=== PATIENT | female | born 1975 | race Caucasian/White ===

== ENCOUNTER → 2022-05-04 17:02 | Outpatient (BNVA) | payer BC, MEDICAID, SELFPAY | PROVIDERS: PCP Nurse Practitioner Family; Visit Provider Nurse Practitioner Family | DX: M25.551 Pain in right hip (principal); M54.50 Low back pain, unspecified; G89.29 Other chronic pain; Z12.39 Encounter for other screening for malignant neoplasm of breast; E03.9 Hypothyroidism, unspecified; M79.7 Fibromyalgia; F31.9 Bipolar disorder, unspecified; J45.20 Mild intermittent asthma, uncomplicated; E55.9 Vitamin D deficiency, unspecified; Z12.11 Encounter for screening for malignant neoplasm of colon; Z87.42 Personal history of other diseases of the female genital tract; Z98.84 Bariatric surgery status | CPT/HCPCS: 80053; 82306; 82607; 82746; 83036; 84439; 84443; 85025 ==

== ENCOUNTER 2022-06-10 15:16 | Outpatient (CLI) | payer BC, MEDICAID, SELFPAY ==
--- NOTE | 2022-06-10 15:24 | MM_ITS ---
WS: [id number] BILATERAL 3D TOMOSYNTHESIS DIGITAL SCREENING MAMMOGRAPHY WITH CAD CLINICAL INFORMATION: SCREEN HISTORY: Screening mammogram. No current complaints. COMPARISON: None. TECHNIQUE: Bilateral CC and MLO views. FINDINGS: Scattered fibroglandular densities bilaterally. No suspicious focal mass, asymmetry, calcifications, or architectural distortion. No evidence of malignancy. MM/[place] [id number] IMPRESSION: BI-RADS: 1-Negative FOLLOW UP: 1 Year Follow-up Recommend return to annual screening mammography.
== END 2022-06-10 15:17 | disposition home or self-care (01) ==
LOC: RAD 15:20
PROVIDERS: PCP Nurse Practitioner Family; Visit Provider Nurse Practitioner Family
DX: Z12.31 Encounter for screening mammogram for malignant neoplasm of breast (principal)
CPT/HCPCS: 77063; 77067

== ENCOUNTER 2022-06-14 06:00 | Outpatient (RCR) | payer BC, SELFPAY | END 2022-06-17 23:59 | disposition home or self-care (01) | LOC: TPT 06:00 | PROVIDERS: PCP Nurse Practitioner Family; Visit Provider Nurse Practitioner Family | DX: M25.551 Pain in right hip (principal); M54.50 Low back pain, unspecified; G89.29 Other chronic pain | CPT/HCPCS: 97161 ==

== ENCOUNTER 2022-06-18 06:00 | Outpatient (RCR) | payer BC, SELFPAY | END 2022-07-17 23:59 | disposition home or self-care (01) | LOC: TPT 06:00 | PROVIDERS: PCP Nurse Practitioner Family; Visit Provider Nurse Practitioner Family | DX: G89.29 Other chronic pain (principal); M54.50 Low back pain, unspecified; M25.551 Pain in right hip | CPT/HCPCS: 97110 ==

== ENCOUNTER → 2022-06-21 15:20 | Outpatient (BNVA) | payer BC, SELFPAY | PROVIDERS: PCP Nurse Practitioner Family; Visit Provider Physician Assistant | DX: Z98.1 Arthrodesis status (principal) | CPT/HCPCS: 72100 ==

== ENCOUNTER → 2022-06-23 17:00 | Outpatient (BNVA) | payer BC, MEDICAID, SELFPAY | PROVIDERS: PCP Nurse Practitioner Family; Visit Provider Nurse Practitioner Family | DX: J32.9 Chronic sinusitis, unspecified (principal) | CPT/HCPCS: 80053; 85025; 86003; 86008; 86618; 86666; 86757 ==

== ENCOUNTER → 2022-08-10 17:16 | Outpatient (BNVA) | payer BC, SELFPAY | PROVIDERS: PCP Nurse Practitioner Family; Visit Provider Nurse Practitioner Family | DX: E03.9 Hypothyroidism, unspecified (principal); R74.8 Abnormal levels of other serum enzymes | CPT/HCPCS: 80076; 82306; 84443 ==

== ENCOUNTER 2022-10-31 08:38 | Outpatient (CLI) | payer BC, SELFPAY ==
--- NOTE | 2022-10-31 08:30 | US_ITS ---
WS: [id number] Complete ABDOMINAL ULTRASOUND HISTORY: R74.8 - Abnormal levels of other serum enzymes COMPARISON: None available. Liver: 16.3 cm in length. Normal size liver and echogenicity. No bile duct dilatation or mass. Portal Vein: Normal hepatopetal flow with monophasic waveform. Gallbladder: Numerous gallstones within the gallbladder. No pericholecystic fluid or gallbladder wall thickening. Common bile duct is top normal size at 6 mm. CBD: 0.6 cm, top normal size. Pancreas: No pancreatic duct dilatation. Normal pancreas. Right kidney: 11.8 cm x 5.0 x 4.1 cm. Cortex: 1.2 cm. Normal size and echogenicity. No hydronephrosis or mass. Left kidney: 12.8 cm x 5.5 cm x 5.6 cm. Cortex: 1.2 cm. Lower pole left renal cyst measures 4.8 x 4.2 x 4.6 cm. No solid mass. Spleen: Normal. 12.8 cm in length. Aorta and IVC: Unremarkable abdominal aorta and IVC. Impression: 1. Cholelithiasis. No evidence for acute cholecystitis. 2. No common bile duct dilatation. 3. Simple left renal cyst maximum diameter 4.8 cm.
== END 2022-10-31 08:39 | disposition home or self-care (01) ==
LOC: RAD 08:46
PROVIDERS: PCP Nurse Practitioner Family; Visit Provider Nurse Practitioner Family
DX: R74.8 Abnormal levels of other serum enzymes (principal); Z90.49 Acquired absence of other specified parts of digestive tract; N28.1 Cyst of kidney, acquired
CPT/HCPCS: 76700; 80053; 80061; 82306; 84439; 84443; 85025

== ENCOUNTER 2022-12-29 18:30 | Emergency (ER) | payer BC, SELFPAY ==
[2022-12-29 18:35] VITALS: BP 161/94; PULSE 95; RESP 16; TEMP 36.6; O2SAT 94; BMI 37.1
--- NOTE | 2022-12-29 18:38 | ECG_ITS ---
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 Measurements Intervals [place] Rate: 87 P: 36 CT: 153 QRS: -23 QRSD: 104 T: 8 QT: 378 QTc: 456 Interpretive Statements SINUS RHYTHM POSSIBLE LEFT ATRIAL ENLARGEMENT [-0.1mV P-WAVE IN V1/V2] INCOMPLETE RIGHT BUNDLE BRANCH BLOCK [90+ ms QRS DURATION, TERMINAL R IN V1/V2, 40+ ms S IN I/aVL/V4/V5/V6] SEPTAL MYOCARDIAL INFARCTION , OF INDETERMINATE AGE [40+ ms Q WAVE IN V1/V2] No previous ECG available for comparison Electronically Signed On 12-29-2022 21:35:04 CDT by Elana Lopez M.D. [id number]
[2022-12-29 20:03] LABS: Basophils # 0.1 10^3/uL (0.0-0.1); Basophils % 0.5 %; Eosinophils # 0.3 10^3/uL (0.0-0.8); Eosinophils % 2.9 %; Hematocrit 46.9 % (36-47); Lymphocytes # 2.6 10^3/uL (0.8-4.8); Lymphocytes % 25.1 %; Mean Corpuscular HGB Conc 33.7 g/dL (30-55); Mean Corpuscular Hemoglobin 30.6 pg (27-33); Mean Corpuscular Volume 90.9 fl (85-98); Mean Platelet Volume 10.4 fL (7.4-10.4); Monocytes # 0.8 10^3/uL (0.2-0.9); Monocytes % 7.8 %; Neutrophils # 6.64 10^3/uL (1.8-7.7); Neutrophils % 63.4 %; Nucleated Red Blood Cells % 0 %; Platelet Count 254 10^3/cmm (157-399); Red Blood Count 5.16 10^6/uL (3.85-5.65); Red Cell Distribution Width 11.8 % (12.1-15.1); White Blood Count 10.45 10^3/uL (3.29-11.43)
[2022-12-29 20:19] LABS: HCG, Serum Qual Negative (Negative)
[2022-12-29 20:22] VITALS: BP 125/82; PULSE 81; O2SAT 94
[2022-12-29 20:27] LABS: Alanine Aminotransferase 172 U/L (0-33); Albumin Level 4.6 g/dL (3.5-5.2); Alkaline Phosphatase 189 U/L (35-105); Anion Gap 13.8 (5-19); Aspartate Amino Transferase 291 U/L (0-32); Blood Urea Nitrogen 22 mg/dL (6-20); Calcium 8.7 mg/dL (8.5-10.5); Carbon Dioxide 27 mmol/L (22-29); Chloride 100 mmol/L (98-107); Globulin 2.7 g/dL (1.3-4.6); Glomerular Filtration Rate 90.5 mL/min (90-130); Glucose 77 mg/dL (65-115); Lipase 26 U/L (13-60); Osmolality Calculated 286 mOsm/kg (285-295); Potassium 3.8 mmol/L (3.5-5.1); Sodium 137 mmol/L (136-145); Total Protein 7.3 g/dL (6.6-8.7)
[2022-12-29 20:30] VITALS: BP 137/84; PULSE 82; O2SAT 95
--- NOTE | 2022-12-29 20:53 | W.ED.ABDPA2 ---
HPI - Abdominal Pain General: Chief Complaint: Abdominal Pain Stated Complaint: upper abdomin pain Time Seen by Provider: 12/29/22 20:05 History of Present Illness: Patient presents to the ER with complaints of right upper quadrant pain and nausea that started worsening today. Patient rates pain a 6 out of 10. Patient has nausea but has not vomited. Patient supposed have her gallbladder removed in [address] Recio. Patient had a gallbladder ultrasound that showed she has gallstones. Patient's liver enzymes per her were previously normal. Review of Systems General: Reports: 10 or more systems reviewed and unremarkable except in HPI and below PFSH ED PFSH: Medical History Anxiety Asthma Bipolar 1 disorder Chronic low back pain Depression Fibromyalgia History of PCOS Hypothyroidism Insomnia OCD (obsessive compulsive disorder) PTSD (post-traumatic stress disorder) Rosacea Vitamin D deficiency Surgical History H/O discectomy H/O thyroidectomy H/O tubal ligation Hx of laminectomy Hx of spinal fusion Family History Mother Diabetes Psychiatric illness bipolar depression Father Cancer prostate cancer Social History Smoking and tobacco/nicotine status: never used tobacco/nicotine Second hand smoke exposure: No Alcohol intake: never Substance/Drug Use: never Household members: spouse Marital status: service: No Current occupational status: employed 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 Current gender identity: Female Special aristides needs: No Physical Exam Const: COMMON NORMALS: no acute distress, average body habitus, patient oriented x3, no limitations, healthy appearing, alert and well nourished HENMT: COMMON NORMALS: normocephalic, atraumatic, hearing grossly normal bilaterally, external ears normal, Normal external nose present, moist oral mucous membranes and oropharynx normal HEAD & SCALP: normocephalic and atraumatic NOSE: Normal external nose present EXTERNAL EAR: Yes external ears normal Neck/C-Spine: COMMON NORMALS: full ROM, no lymphadenopathy, supple, no meningeal signs, no JVD and Thyroid normal THYROID: Thyroid normal Chest: COMMONS NORMALS: normal inspection of the chest and normal palpation of entire chest wall Resp: COMMON NORMALS: normal respiratory effort, No retractions, No use of accessory muscles and clear to auscultation bilaterally AUSCULTATION: clear to auscultation bilaterally Cardio: COMMON NORMALS: no JVD, regular rate, regular rhythm, S1 normal heart sound present, S2 normal heart sound present, No gallops present (Cardio), No clicks present (Cardio) and No rub (Cardio) RATE: regular rate RHYTHM: regular rhythm HEART SOUNDS: S1 normal heart sound present and S2 normal heart sound present GI: COMMON NORMALS: Normal to inspection, nondistended, normoactive bowel sounds present, Soft to palpation and no masses; negative for non-tender ( Painful to palpation right upper quadrant) PALPATION: Yes Soft to palpation Neuro: COMMON NORMALS: patient oriented x3 SENSORIUM/ORIENTATION: Yes alert MENINGEAL SIGNS: Yes no meningeal signs Course Vital Signs: Vital signs: Vital Signs Temperature 97.9 F 12/29/22 18:35 Pulse Rate 76 12/29/22 22:56 Respiratory Rate 18 12/29/22 22:56 Blood Pressure 131/87 12/29/22 22:56 Pulse Oximetry 98 12/29/22 22:56 Oxygen Delivery Me thod Room Air 12/29/22 22:30 MDM - Abdominal Pain Medical Decision Making Patient is due to have her gallbladder taken out in approximately [address] Recio. Patient was having increased pain. Lab work was obtained which showed an elevated AST of 291, ALT 172, alk phos of 189, total bilirubin is 1.0. Patient's white count was normal. Ultrasound showed gallbladder wall of two-point2.8 and a common bile duct of 5.7. Dr. Recio was consulted who said she does not have cholecystitis and is does not need anything different done emergently just keep her pain and nausea under control and he will take her gallbladder out as planned. patient be discharged home with pain medicine and nausea medicine. Differential Diagnosis Unlikely abdominal pain, acute appendicitis, calculus of kidney, constipation, diverticulitis, endometriosis, gastroenteritis, pancreatitis or small bowel obstruction Medical Records I reviewed the patient's medical records. Lab Data I reviewed the patient's lab results. 12/29/22 19:37 12/29/22 19:37 Labs/Radiology: Radiology Impressions Abdomen Ultrasound 12/29/22 20:54 IMPRESSION: Acute cholecystitis. Laboratory Results WBC 10.45 10^3/uL (3.29-11.43) 12/29/22 19:37 RBC 5.16 10^6/uL (3.85-5.65) 12/29/22 19:37 Hgb 15.80 g/dL (11.27-16.99) 12/29/22 19:37 Hct 46.9 % (36-47) 12/29/22 19:37 MCV 90.9 fl (85-98) 12/29/22 19:37 MCH 30.6 pg (27-33) 12/29/22 19:37 MCHC 33.7 g/dL (30-55) 12/29/22 19:37 RDW 11.8 % (12.1-15.1) L 12/29/22 19:37 Plt Count 254 10^3/cmm (157-399) 12/29/22 19:37 MPV 10.4 fL (7.4-10.4) 12/29/22 19:37 Neut % (Auto) 63.4 % 12/29/22 19:37 Lymph % (Auto) 25.1 % 12/29/22 19:37 Robertson % (Auto) 7.8 % 12/29/22 19:37 Eos % (Auto) 2.9 % 12/29/22 19:37 Baso % (Auto) 0.5 % 12/29/22 19:37 Neut # (Auto) 6.64 10^3/uL (1.8-7.7) 12/29/22 19:37 Lymph # (Auto) 2.6 10^3/uL (0.8-4.8) 12/29/22 19:37 Robertson # (Auto) 0.8 10^3/uL (0.2-0.9) 12/29/22 19:37 Eos # (Auto) 0.3 10^3/uL (0.0-0.8) 12/29/22 19:37 Baso # (Auto) 0.1 10^3/uL (0.0-0.1) 12/29/22 19:37 Nucleated RBC % (auto) 0 % 12/29/22 19:37 Nucleated RBCs # 0.0 /100WBC 12/29/22 19:37 Sodium 137 mmol/L (136-145) 10/12/23 19:37 Potassium 3.8 mmol/L (3.5-5.1) 12/29/22 19:37 Chloride 100 mmol/L (98-107) 12/29/22 19:37 Carbon Dioxide 27 mmol/L (22-29) 12/29/22 19:37 Anion Gap 13.8 (5-19) 12/29/22 19:37 BUN 22 mg/dL (6-20) H 12/29/22 19:37 Creatinine 0.7 mg/dL (0.5-0.9) 12/29/22 19:37 GFR Calculation 90.5 mL/min (90-130) 12/29/22 19:37 Glucose 77 mg/dL (65-115) 12/29/22 19:37 Calculated Osmolality 286 mOsm/kg (285-295) 12/29/22 19:37 Calcium 8.7 mg/dL (8.5-10.5) 12/29/22 19:37 Total Bilirubin 1.0 mg/dL (0.15-1.2) 12/29/22 19:37 AST 291 U/L (0-32) H 12/29/22 19:37 ALT 172 U/L (0-33) H 12/29/22 19:37 Alkaline Phosphatase 189 U/L (35-105) H 12/29/22 19:37 Total Protein 7.3 g/dL (6.6-8.7) 12/29/22 19:37 Albumin 4.6 g/dL (3.5-5.2) 12/29/22 19:37 Globulin 2.7 g/dL (1.3-4.6) 12/29/22 19:37 Lipase 26 U/L (13-60) 12/29/22 19:37 HCG, Qual Negative (Negative) 12/29/22 19:37 Urine Color Yellow (Yellow) 12/29/22 21:55 Urine Appearance Clear (CLEAR) 12/29/22 21:55 Urine pH 5 (5-7) 12/29/22 21:55 Ur Specific [place] 1.025 (1.005-1.030) 12/29/22 21:55 Urine Protein Neg (Negative) 12/29/22 21:55 Urine Glucose (UA) Norm (Normal) 12/29/22 21:55 Urine Ketones Negative (Negative) 12/29/22 21:55 Urine Blood Neg (Negative) 12/29/22 21:55 Urine Nitrate Negative (Negative) 12/29/22 21:55 Urine Bilirubin Neg (Negative) 12/29/22 21:55 Urine Urobilinogen 1 mg/dL (Negative) H 12/29/22 21:55 Ur Leukocyte Esterase Negative (Negative) 12/29/22 21:55 All radiology interpretation(s) finalized by discharge Discharge Plan Discharge Patient Disposition: Home Clinical Impression: Biliary colic Cholelithiasis Qualifiers: Cholelithiasis location: gallbladder Cholecystitis presence: without cholecystitis Biliary obstruction: without biliary obstruction Qualified Code(s): K80.20 - Calculus of gallbladder without cholecystitis without obstruction Condition: Stable Prescriptions: New hydrocodone-acetaminophen 5-325 mg tablet 1 tab PO Q8H PRN (Reason: pain) Qty: 10 0RF ondansetron HCl 4 mg tablet 4 mg PO Q8H PRN (Reason: nausea and vomiting) Qty: 14 0RF No Action clonazepam 1 mg tablet 1 mg PO BID clomipramine 50 mg capsule 50 mg PO DAILY Rx Instructions: bedtime topiramate [Topamax] 100 mg tablet 100 mg PO DAILY albuterol sulfate 90 mcg/actuation HFA aerosol inhaler 2 puff inhalation Q6H PRN albuterol sulfate 2.5 mg /3 mL (0.083 %) solution for nebulization 2.5 mg inhalation Q6H PRN Caplyta 42 mg capsule 42 mg PO DAILY trazodone 150 mg tablet 150 mg PO DAILY pregabalin [Lyrica] 75 mg capsule 75 mg PO BID Qty: 60 2RF methocarbamol 500 mg tablet 500 mg PO TID 30 Days Qty: 90 2RF mupirocin 2 % ointment 1 applic topical TID 10 Days Qty: 15 0RF methylprednisolone [Medrol (David)] 4 mg tablets,dose pack See Rx Instructions PO PER PKG DIR Qty: 21 0RF Rx Instructions: PO PER PKG DIR doxycycline hyclate 100 mg capsule 100 mg PO BID 10 Days Qty: 20 0RF ergocalciferol (vitamin D2) 1,250 mcg (50,000 unit) capsule 1,250 mcg PO .weekly Qty: 12 0RF levothyroxine 175 mcg capsule 175 mcg PO DAILY Qty: 60 0RF Discharge Orders: Discharge ED (Routine); Ordered 12/29/22 Ordered By: Frederick Thomas Referrals: Ayleen Marshall FNP [Primary Care Provider] - Patient Instructions: Abdominal Pain (ED), Opioid Safety, Pain Management Activity Restrictions/Additional Instructions: please keep your planned appointment with Dr. Recio. If your pain becomes intolerable please return to the ER for further evaluation and treatment or call Dr. Recio's office directly. Coding Level of Care Code ED Air Conditioning Technician for Dionna Torres
--- NOTE | 2022-12-29 20:54 | USR_ITS ---
PROCEDURE INFORMATION: Exam: US Abdomen, Limited; Right Upper Quadrant Exam date and time: 12/29/2022 9:05 PM Age: 47 years old Clinical indication: Abdominal pain; Patient HX: Patient was diagnosed with cholelithiasis on 10/31/2022 at this facility. She is scheduled for lapchole in about 2 weeks. C/O ruq pain tonight; Additional info: Ruq pain, n/v, known cholelithiasis, worsening lfts TECHNIQUE: Imaging protocol: Real time ultrasound of the abdomen with image documentation. Limited exam focused on the right upper quadrant. COMPARISON: US abdomen complete* [id number] 10/31/2022 9:04 AM FINDINGS: Liver: Normal. No masses. Gallbladder: Multiple small calcified stones gallbladder measuring up to 16 mm. Sonographic Larios's sign elicited during the examination. Gallbladder wall thickening measuring up to 4 mm. Biliary ducts: Common bile duct is normal in size measuring up 6 mm. Pancreas: Visualized pancreas is unremarkable. Right kidney: Normal. No mass. No hydronephrosis. US/US abdomen limited [id number] IMPRESSION: Acute cholecystitis.
[2022-12-29 21:31] VITALS: BP 104/76; PULSE 74; O2SAT 95
[2022-12-29 21:58] LABS: Add Urine Microscopic? NO; Charge for UA Resulting for Rev
[2022-12-29 22:00] LABS: Bilirubin Urine Neg (Negative); Blood Urine Neg (Negative); Glucose Urine UA Norm (Normal); Ketones Urine Negative (Negative); Leukocyte Esterase Urine Negative (Negative); Nitrate Urine Negative (Negative); Protein Urine Neg (Negative); Specific Gravity, Urine 1.025 (1.005-1.030); Urine Appearance Clear (CLEAR); Urine Color Yellow (Yellow); Urobilinogen Urine 1 mg/dL (Negative); pH Urine 5 (5-7)
[2022-12-29] MEDS: ondansetron 2 mg/ML SDV 2 mL 4 MG IVP (22:05)
[2022-12-29] MEDS: ketorolac 30 mg/mL INJ IVP (22:05)
[2022-12-29 22:30] VITALS: BP 125/85; PULSE 71; O2SAT 97
[2022-12-29 22:56] VITALS: BP 131/87; PULSE 76; RESP 18; O2SAT 98
== END 2022-12-29 22:58 | disposition home or self-care (01) ==
PROVIDERS: Nurse Practitioner Family; Emergency Provider Emergency Medicine; PCP Nurse Practitioner Family
DX: K80.00 Calculus of gallbladder with acute cholecystitis without obstruction (principal)
CPT/HCPCS: 36415; 76705; 80053; 81003; 83690; 84703; 85025; 93005; 96374; 96375; 99285; J1885; J2405

== ENCOUNTER → 2023-01-09 17:36 | Outpatient (BNVA) | payer BC, SELFPAY | PROVIDERS: PCP Nurse Practitioner Family; Visit Provider Nurse Practitioner Family | DX: R07.9 Chest pain, unspecified (principal); E03.9 Hypothyroidism, unspecified | CPT/HCPCS: 80053; 84439; 84443; 85025 ==

== ENCOUNTER 2023-01-12 09:28 | Day surgery (SDC) | payer BC, SELFPAY ==
[2023-01-12] VITALS (10 sets, daily range): BP systolic 117–136; BP diastolic 65–89; PULSE 65–77; RESP 16–18; TEMP 36.1–36.4; O2SAT 91–100; BMI 37.8
[2023-01-12 09:41] LABS: OR HCG Qualitative Urine Negative (Negative)
[2023-01-12] MEDS: scopolamine 1.5 Patch 1 PATCH TRANSDERMA (10:06)
[2023-01-12] MEDS: sodium chloride 0.9% 1,000 ML 30 ML IV (10:08)
--- NOTE | 2023-01-12 10:48 | W.PM.OPSUD ---
Surgery/Procedure H&P Update DATE OF PROCEDURE: January 12, 2023 DATE H&P PERFORMED: 12/14/22 H&P UPDATE INFORMATION: I have reviewed H&P completed within last 30 days, I have examined patient prior to procedure and No changes to prior documentation PLANNED PROCEDURE: Operation Date: 01/12/23 11:05 Proposed Procedures p 42484 lap heidi K80.20(Not Applicable) - Hector Recio DO
--- NOTE | 2023-01-12 10:50 | ANES.PREANE2 ---
Pre-Anesthetic Assessment Height/Weight: Height 1.68 m Weight 106.141 kg Temp Pulse Resp BP Pulse Ox O2 Del Method 97.5 F L 77 16 136/89 94 Room Air 01/12/23 09:47 01/12/23 09:47 01/12/23 09:47 01/12/23 09:47 01/12/23 09:47 01/12/23 09:51 Operation Date: 01/12/23 11:05 Proposed Procedures p 15516 lap heidi K80.20(Not Applicable) - Hector Recio DO Familial anesthetic complications: none Was Beta Aubrey taken within 24 hours: N/A Was Clonidine taken within 24 hours: N/A Last intake: Intake Last Liquid Date 01/11/23 Last Liquid Time 20:00 Last Solid Date 01/10/23 Last Solid Time 16:00 Social No alcohol and No tobacco Exam alert, oriented x 3, clear to auscultation bilaterally and regular rate & rhythm Airway Submandibular: within normal limits Cervical ROM: within normal limits Mallampati: Class II Dentition: chipped Pulmonary Asthma Metabolic Thyroid Disease [facility] [place] Fibromyalgia, Lower Back Pain and Osteoarthritis/DJD Chronic pain Neuropsych Bipolar Anesthetic Plan ASA status: 3 Anesthesia: General Medications/Allergies Home Medications Medication Instructions Recorded Confirmed Last Taken Type clomipramine 50 mg capsule 50 mg PO DAILY 05/04/22 01/11/23 01/11/23 History clonazepam 1 mg tablet 1 mg PO BID 05/04/22 01/11/23 01/11/23 History topiramate 100 mg tablet (Topamax) 100 mg PO DAILY 05/04/22 01/11/23 01/11/23 History lumateperone 42 mg capsule 42 mg PO DAILY 10/31/22 01/11/23 01/11/23 History (Caplyta) pregabalin 75 mg capsule (Lyrica) 75 mg PO BID #60 caps 10/31/22 01/11/23 01/11/23 Rx trazodone 150 mg tablet 150 mg PO DAILY 10/31/22 01/11/23 01/11/23 History hydrocodone 5 mg-acetaminophen 325 1 tab PO Q8H PRN pain #10 tabs 12/29/22 01/11/23 01/11/23 Rx mg tablet ondansetron HCl 4 mg tablet 4 mg PO Q8H PRN nausea and 12/29/22 01/11/23 01/10/23 Rx vomiting #14 tabs levothyroxine 200 mcg capsule 200 mcg PO DAILY #60 caps 01/11/23 Unknown Rx methocarbamol 500 mg tablet 500 mg PO BID 01/11/23 01/11/23 01/11/23 History mupirocin 2 % topical ointment 1 applic topical TID PRN Itching 01/11/23 01/11/23 Unknown History Allergies Allergy/AdvReac Type Severity Reaction Status Date / Time fluoxetine [From Prozac] Allergy Severe suicidal Verified 01/09/23 16:43 thoughts latex Allergy Severe short of Verified 01/09/23 16:43 breath azithromycin Allergy Intermediate hives Verified 01/09/23 16:43 lisinopril Allergy Mild cough Verified 01/09/23 16:43 zoloft Allergy Severe suicidal Uncoded 01/09/23 16:43 thoughts Current Medications Generic Name Dose Route Start Last Admin Trade Name Freq PRN Reason Stop Dose Admin Sodium Chloride 1,000 mls @ 30 mls/hr 01/12/23 09:30 01/12/23 10:08 Sodium Chloride 0.9% IV 01/13/23 09:29 30 mls/hr .Q24H DIANE Administration PFSH Anesthesia Medical History Anxiety Asthma Bipolar 1 disorder Chronic low back pain Depression Fibromyalgia History of PCOS Hypothyroidism Insomnia OCD (obsessive compulsive disorder) PTSD (post-traumatic stress disorder) Rosacea Vitamin D deficiency Surgical History H/O discectomy H/O thyroidectomy H/O tubal ligation Hx of laminectomy Hx of spinal fusion Family History Mother Diabetes Psychiatric illness bipolar depression Father Cancer prostate cancer Social History Smoking and tobacco/nicotine status: never used tobacco/nicotine Second hand smoke exposure: No Alcohol intake: never Substance/Drug Use: never Household members: spouse Marital status: service: No Current occupational status: employed 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
[2023-01-12] MEDS: HYDROmorphone 1 mg/mL INJ 1 mL 0.5 MG IVP (11:27)
[2023-01-12] MEDS: ceFAZolin 2,000 MG in sodium chloride 0.9% (plus) 50 ML 100 MG IV (12:03)
[2023-01-12] MEDS: lidocaine-epi 2% 20 mL INJ INJECTION (12:30)
--- NOTE | 2023-01-12 12:44 | P.OP_ITS ---
Operative Report Date of procedure: January 12, 2023 Pre-op diagnosis: Symptomatic cholelithiasis Post-op diagnosis: same Procedure done: Laparoscopic cholecystectomy Implants: None Specimens removed/disposition: Gallbladder Surgeon: Hector Recio DO Anesthesia: General Estimated blood loss (mL): 5 Complications: None apparent Brief History: This very pleasant 47-year-old female who presented to my office with abdominal pain. She was diagnosed with symptomatic cholelithiasis. Laparoscopic cholecystectomy is indicated. The risk benefits were explained and documented. Procedure: Patient was wheeled into the operative room and placed on the OR table in a santana pine position. Abdomen was inspected prepped and draped in usual sterile fashion. Time-out was performed and all present were in agreement. A 15 blade scalp was used to make a stab incision in the left upper quadrant and intra- abdominal insufflation was achieved using a Veress needle. After localizing the tissue incisions were made and a 5 millimeter trocar was placed into the umbilicus as well as 2 in the right upper quadrant. A 12 millimeter trocar was placed in the epigastrium. Gallbladder was grasped and elevated. The triangle of Calot was carefully dissected using blunt dissection and electrocautery until the triangle of Calot clearly identified. The cystic duct was clipped proximally and double clipped distally. The duct was then ligated proximally. The cystic artery was doubly clipped and ligated. The gallbladder was then removed from the liver bed using electrocautery. The gallbladder was removed from the abdomen using an Endo-Catch bag through the epigastric incision. The liver bed was inspected and no bleeding was seen. The abdomen was irrigated and suctioned. All ports removed. Skin was washed and dried. Incisions were closed with 4-0 Monocryl in a subcuticular interrupted fashion. Skin glue was applied. Patient tolerated the procedure well.
--- NOTE | 2023-01-12 13:26 | ANE.PACU2 ---
Inpatient post-anesthesia follow up: Airway intact: Yes Vital signs: Temperature 97.2 F Pulse Rate 68 Respiratory Rate 16 Blood Pressure 128/70 Pulse Oximetry 95 Oxygen Delivery Me thod Room Air Oxygen Flow Rate 6 Fraction of Inspir ed Oxygen Hydration adequate: Yes Nausea and vomiting: No Pain level: 3 Mental status: Baseline
[2023-01-12] MEDS: HYDROcodone-acetaminophen 10-325 mg Tablet 1 TAB PO (13:49)
== END 2023-01-12 14:06 | disposition home or self-care (01) ==
PROVIDERS: PCP Nurse Practitioner Family; Visit Provider Surgery
PROC: 0FT44ZZ Resection of Gallbladder, Percutaneous Endoscopic Approach (ICD-10-PCS; CPT 47562; principal; 2023-01-12 10:55)
DX: K80.10 Calculus of gallbladder with chronic cholecystitis without obstruction (principal); M79.7 Fibromyalgia; J45.909 Unspecified asthma, uncomplicated; M19.90 Unspecified osteoarthritis, unspecified site; G89.29 Other chronic pain; Z79.891 Long term (current) use of opiate analgesic; F41.9 Anxiety disorder, unspecified; F32.A Depression, unspecified
CPT/HCPCS: 47562; 84703; 88304; J0690; J1100; J1170; J2001; J2250; J2405; J2704; J2710; J3010; J3490; J7030

== ENCOUNTER → 2023-04-11 17:36 | Outpatient (BNVA) | payer BC, SELFPAY | PROVIDERS: PCP Nurse Practitioner Family; Visit Provider Nurse Practitioner Family | DX: E03.9 Hypothyroidism, unspecified (principal); Z98.84 Bariatric surgery status; E55.9 Vitamin D deficiency, unspecified; Z79.899 Other long term (current) drug therapy | CPT/HCPCS: 80053; 82306; 84439; 84443; 84446; 84590 ==

== ENCOUNTER → 2023-05-02 09:12 | Outpatient (BNVA) | payer BC, SELFPAY | PROVIDERS: PCP Nurse Practitioner Family; Visit Provider Internal Medicine | DX: E03.9 Hypothyroidism, unspecified (principal); N91.2 Amenorrhea, unspecified | CPT/HCPCS: 36415; 82670; 83001; 83002; 84439 ==

== ENCOUNTER → 2023-05-04 09:12 | Outpatient (BNVA) | payer BC, SELFPAY | PROVIDERS: PCP Nurse Practitioner Family; Visit Provider Internal Medicine | DX: E03.9 Hypothyroidism, unspecified (principal); N91.2 Amenorrhea, unspecified; E28.2 Polycystic ovarian syndrome | CPT/HCPCS: 36415; 84702 ==

== ENCOUNTER 2023-05-31 07:23 | Day surgery (SDC) | payer BC, SELFPAY ==
[2023-05-31 07:58] LABS: OR HCG Qualitative Urine Negative (Negative)
[2023-05-31] MEDS: sodium chloride 0.9% 1,000 ML 30 ML IV (07:58)
[2023-05-31 07:59] VITALS: BP 139/72; PULSE 90; RESP 16; TEMP 36.3; O2SAT 96; BMI 35.6
--- NOTE | 2023-05-31 08:10 | ANES.PREANE2 ---
Pre-Anesthetic Assessment Height/Weight: Height 1.73 m Weight 106.141 kg Temp Pulse Resp BP Pulse Ox O2 Del Method 97.3 F L 90 16 139/72 96 Room Air 05/31/23 07:59 05/31/23 07:59 05/31/23 07:59 05/31/23 07:59 05/31/23 07:59 05/31/23 07:59 Operation Date: 05/31/23 09:00 Proposed Procedures p 16445 colon G0121 screen colon A risk Z12.11(Not Applicable) - Hector Recio, DO Was Beta Aubrey taken within 24 hours: N/A Was Clonidine taken within 24 hours: N/A Last intake: Intake Last Liquid Date 05/30/23 Last Liquid Time 22:00 Last Solid Date 05/29/23 Last Solid Time 18:00 Last Intake: 22:00 Social No alcohol and No tobacco Exam No alert, oriented x 3, clear to auscultation bilaterally and regular rate & rhythm Airway Submandibular: within normal limits Cervical ROM: within normal limits Mallampati: Class II Comments: Comments: good dentition History/ROS No significant history except as noted Pulmonary Asthma CV/HEM None reported None reported Hepatic None reported GI Gastroesophageal Reflux Disease duodenal switch for wt loss morbid obesity Metabolic Thyroid Disease thyroidectomy due to goiter Musc/skel Lower Back Pain back fusion Neuropsych None reported Anesthetic Plan ASA status: 2 Anesthesia: MAC and Regional (specify below) Risk of > 500 ml blood loss (7ml/kg in children): Yes, adequate IV access and fluids planned Medications/Allergies Home Medications Medication Instructions Recorded Confirmed Last Taken Type clomipramine 50 mg capsule 50 mg PO DAILY 05/04/22 05/31/23 05/30/23 History clonazepam 1 mg tablet 1 mg PO BID 05/04/22 05/31/23 05/30/23 History topiramate 100 mg tablet (Topamax) 100 mg PO DAILY 05/04/22 05/31/23 05/30/23 History lumateperone 42 mg capsule 42 mg PO DAILY 10/31/22 05/31/23 05/30/23 History (Caplyta) trazodone 150 mg tablet 150 mg PO BEDTIME 10/31/22 05/31/23 05/30/23 History mupirocin 2 % topical ointment 1 applic topical TID PRN Itching 01/11/23 05/31/23 05/30/23 History ergocalciferol (vitamin D2) 1,250 1,250 mcg PO .weekly #12 caps 04/27/23 05/31/23 05/30/23 Rx mcg (50,000 unit) capsule pregabalin 75 mg capsule (Lyrica) 75 mg PO BID #60 caps 04/30/23 05/31/23 05/30/23 Rx levothyroxine 200 mcg tablet 200 mcg PO DAILY #30 tabs 05/16/23 05/31/23 05/30/23 Rx levothyroxine 50 mcg tablet 50 mcg PO DAILY #30 tabs 05/16/23 05/31/23 05/30/23 Rx methocarbamol 500 mg tablet 500 mg PO DAILY 05/29/23 05/31/23 05/30/23 History Allergies Allergy/AdvReac Type Severity Reaction Status Date / Time fluoxetine [From Prozac] Allergy Severe suicidal Verified 05/31/23 07:54 thoughts latex Allergy Severe short of Verified 05/31/23 07:54 breath azithromycin Allergy Intermediate hives Verified 05/31/23 07:54 lisinopril Allergy Mild cough Verified 05/31/23 07:54 zoloft Allergy Severe suicidal Uncoded 05/31/23 07:54 thoughts Current Medications Generic Name Dose Route Start Last Admin Trade Name Freq PRN Reason Stop Dose Admin Sodium Chloride 1,000 mls @ 30 mls/hr 05/31/23 07:45 05/31/23 07:58 Sodium Chloride 0.9% IV 06/01/23 07:44 30 mls/hr .Q24H DIANE Administration PFSH Anesthesia Medical History Asthma Bipolar 1 disorder Hypothyroidism Fibromyalgia History of PCOS Anxiety Depression Vitamin D deficiency PTSD (post-traumatic stress disorder) OCD (obsessive compulsive disorder) Insomnia Rosacea Chronic low back pain Surgical History H/O thyroidectomy H/O tubal ligation Hx of laminectomy H/O discectomy Hx of spinal fusion Family History Mother Diabetes Psychiatric illness bipolar depression Father Cancer prostate cancer Social History Smoking and tobacco/nicotine status: never used tobacco/nicotine Second hand smoke exposure: No Alcohol intake: never Substance/Drug Use: never Household members: spouse Marital status: service: No Current occupational status: employed 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
--- NOTE | 2023-05-31 08:48 | PM.HP ---
Providers/Chief Complaint Primary Care Provider: EVELIO Turcios Chief Complaint: Z12.11 History of Present Illness Tasia Cohen is a 48 year old female Review of Systems General: Reports: 10 or more systems reviewed and unremarkable except in HPI and below Medications/Allergies Home Medications Medication Instructions Recorded Confirmed Last Taken Type clomipramine 50 mg capsule 50 mg PO DAILY 05/04/22 05/31/23 05/30/23 History clonazepam 1 mg tablet 1 mg PO BID 05/04/22 05/31/23 05/30/23 History topiramate 100 mg tablet (Topamax) 100 mg PO DAILY 05/04/22 05/31/23 05/30/23 History lumateperone 42 mg capsule 42 mg PO DAILY 10/31/22 05/31/23 05/30/23 History (Caplyta) trazodone 150 mg tablet 150 mg PO BEDTIME 10/31/22 05/31/23 05/30/23 History mupirocin 2 % topical ointment 1 applic topical TID PRN Itching 01/11/23 05/31/23 05/30/23 History ergocalciferol (vitamin D2) 1,250 1,250 mcg PO .weekly #12 caps 04/27/23 05/31/23 05/30/23 Rx mcg (50,000 unit) capsule pregabalin 75 mg capsule (Lyrica) 75 mg PO BID #60 caps 04/30/23 05/31/23 05/30/23 Rx levothyroxine 200 mcg tablet 200 mcg PO DAILY #30 tabs 05/16/23 05/31/23 05/30/23 Rx levothyroxine 50 mcg tablet 50 mcg PO DAILY #30 tabs 05/16/23 05/31/23 05/30/23 Rx methocarbamol 500 mg tablet 500 mg PO DAILY 05/29/23 05/31/23 05/30/23 History Allergies Allergy/AdvReac Type Severity Reaction Status Date / Time fluoxetine [From Prozac] Allergy Severe suicidal Verified 05/31/23 07:54 thoughts latex Allergy Severe short of Verified 05/31/23 07:54 breath azithromycin Allergy Intermediate hives Verified 05/31/23 07:54 lisinopril Allergy Mild cough Verified 05/31/23 07:54 zoloft Allergy Severe suicidal Uncoded 05/31/23 07:54 thoughts PFSH Acute PFSH: Medical History Asthma Bipolar 1 disorder Hypothyroidism Fibromyalgia History of PCOS Anxiety Depression Vitamin D deficiency PTSD (post-traumatic stress disorder) OCD (obsessive compulsive disorder) Insomnia Rosacea Chronic low back pain Surgical History H/O thyroidectomy H/O tubal ligation Hx of laminectomy H/O discectomy Hx of spinal fusion Family History Mother Diabetes Psychiatric illness bipolar depression Father Cancer prostate cancer Social History Smoking and tobacco/nicotine status: never used tobacco/nicotine Second hand smoke exposure: No Alcohol intake: never Substance/Drug Use: never Household members: spouse Marital status: service: No Current occupational status: employed 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
[2023-05-31 09:11] VITALS: BP 111/34; PULSE 83; RESP 16; TEMP 36.4; O2SAT 95
[2023-05-31 09:22] VITALS: BP 118/75; PULSE 87; RESP 17; O2SAT 98
--- NOTE | 2023-05-31 09:45 | ANE.PACU2 ---
Inpatient post-anesthesia follow up: Airway intact: Yes Vital signs: Temperature 97.6 F Pulse Rate 87 Respiratory Rate 17 Blood Pressure 118/75 Pulse Oximetry 98 Oxygen Delivery Me thod Room Air Oxygen Flow Rate Fraction of Inspir ed Oxygen Hydration adequate: Yes Nausea and vomiting: No Pain level: 1 Mental status: Baseline
[2023-05-31 10:22] LABS: C.Diff PCR (Lab) POSITIVE (Negative)
--- NOTE | 2023-05-31 10:37 | PC.NURSE ---
1030-Called in Vancomycin to pts pharmacy at [facility] in [place] per Dr Recio's verbal order.
== END 2023-05-31 09:44 | disposition home or self-care (01) ==
PROVIDERS: Anesthesiology; PCP Nurse Practitioner Family; Visit Provider Surgery
PROC: 0DJD8ZZ Inspection of Lower Intestinal Tract, Via Natural or Artificial Opening Endoscopic (ICD-10-PCS; CPT 45378; principal; 2023-05-31 09:00)
DX: Z12.11 Encounter for screening for malignant neoplasm of colon (principal); K52.9 Noninfective gastroenteritis and colitis, unspecified; D12.4 Benign neoplasm of descending colon; J45.909 Unspecified asthma, uncomplicated; E66.01 Morbid (severe) obesity due to excess calories; Z68.35 Body mass index [BMI] 35.0-35.9, adult; Z98.1 Arthrodesis status; E03.9 Hypothyroidism, unspecified; E28.2 Polycystic ovarian syndrome
CPT/HCPCS: 45380; 81025; 82274; 83630; 84703; 87045; 87177; 87209; 87427; 87449; 87493; 88305; J2704; J7030

== ENCOUNTER 2023-07-03 14:05 | Outpatient (CLI) | payer BC, SELFPAY ==
--- NOTE | 2023-07-03 14:15 | US_ITS ---
WS: [id number] US pelv w/transvag [id number] HISTORY: N91.2 - Amenorrhea, unspecified COMPARISON: None available. Quality this examination is very suboptimal. Uterus: 8.3 cm x 6.3 cm x 9.2 cm. Anteverted uterus. Very heterogeneous uterus. There is no discrete mass identified. Suspect there may be fibroids causing the heterogeneity. Endometrium: Poorly visualized. The portion of the endometrium noted is 4 mm. Numerous nabothian cyst s. Right ovary: 3.9 cm x 3.3 cm x 2.8 cm. Normal size and vascularity, no cystic or solid masses. Small follicles. Left ovary: LEFT oophorectomy. No free fluid in the cul-de-sac. IMPRESSION: 1. Very limited evaluation of the pelvic structures. Neither the uterus nor the endometrium are well seen. 2. Heterogeneous uterus. There may be fibroids present. 3. Poorly visualized endometrium. 4. Prior LEFT oophorectomy.
== END 2023-07-03 14:06 | disposition home or self-care (01) ==
LOC: RAD 14:06
PROVIDERS: PCP Nurse Practitioner Family; Visit Provider Internal Medicine
DX: N91.2 Amenorrhea, unspecified (principal); E28.2 Polycystic ovarian syndrome
CPT/HCPCS: 76830; 76856

== ENCOUNTER 2023-08-16 14:06 | Outpatient (CLI) | payer BC, SELFPAY ==
--- NOTE | 2023-08-16 14:00 | MM_ITS ---
WS: [id number] BILATERAL 3D TOMOSYNTHESIS DIGITAL SCREENING MAMMOGRAPHY WITH CAD CLINICAL INFORMATION: Z12.39 - Encounter for other screening for malignant neop... HISTORY: Screening mammogram. No current complaints. COMPARISON: 2022 TECHNIQUE: Bilateral CC and MLO views. FINDINGS: Scattered fibroglandular densities bilaterally. No suspicious focal mass, asymmetry, calcifications, or architectural distortion. No evidence of malignancy. A few tiny incidental punctate calcifications . Stable asymmetries upper outer RIGHT breast. MM/[place] [id number] IMPRESSION: BI-RADS: 2-Benign FOLLOW UP: 1 Year Follow-up Recommend return to annual screening mammography.
== END 2023-08-16 14:07 | disposition home or self-care (01) ==
LOC: MOBLMAM 14:12
PROVIDERS: PCP Family Medicine; Visit Provider Family Medicine
DX: Z12.31 Encounter for screening mammogram for malignant neoplasm of breast (principal); R92.323 Mammographic fibroglandular density, bilateral breasts
CPT/HCPCS: 77063; 77067

== ENCOUNTER → 2023-08-18 11:07 | Outpatient (BNVA) | payer BC, SELFPAY | PROVIDERS: PCP Family Medicine; Visit Provider Internal Medicine | DX: E03.9 Hypothyroidism, unspecified (principal); E28.2 Polycystic ovarian syndrome; Z98.84 Bariatric surgery status | CPT/HCPCS: 36415; 84439; 84443 ==

== ENCOUNTER → 2023-10-12 13:14 | Outpatient (BNVA) | payer BC, SELFPAY | PROVIDERS: PCP Family Medicine; Visit Provider Internal Medicine | DX: E03.9 Hypothyroidism, unspecified (principal); E28.2 Polycystic ovarian syndrome; N91.2 Amenorrhea, unspecified | CPT/HCPCS: 36415; 82784; 83516; 84439; 84443 ==

== ENCOUNTER → 2023-12-13 12:43 | Outpatient (BNVA) | payer BC, SELFPAY | PROVIDERS: PCP Family Medicine; Visit Provider Internal Medicine | DX: E03.9 Hypothyroidism, unspecified (principal) | CPT/HCPCS: 36415; 84439; 84443 ==

== ENCOUNTER → 2024-06-13 13:10 | Outpatient (BNVA) | payer OTHER, SELFPAY | PROVIDERS: PCP Nurse Practitioner Family; Visit Provider Nurse Practitioner Family | DX: E03.9 Hypothyroidism, unspecified (principal) | CPT/HCPCS: 80053; 80061; 84443; 85025 ==

== ENCOUNTER → 2024-10-31 16:05 | Outpatient (BNVA) | payer OTHER, SELFPAY | PROVIDERS: PCP Nurse Practitioner Family; Visit Provider Nurse Practitioner Family | DX: R05.9 Cough, unspecified (principal); I70.90 Unspecified atherosclerosis | CPT/HCPCS: 71046 ==

== ENCOUNTER 2024-11-07 10:56 | Outpatient (CLI) | payer OTHER, SELFPAY ==
--- NOTE | 2024-11-07 11:00 | MM_ITS ---
WS: [id number] BILATERAL SCREENING DIGITAL TOMOSYNTHESIS MAMMOGRAM WITH CAD HISTORY: Z12.39 - Encounter for other screening for malignant neop... COMPARISON: 08/16/2023, 06/10/2022 Bilateral CC and MLO views with tomosynthesis and synthetic mammography submitted. Computer aided detection analyzed. Breast composition: There are scattered areas of fibroglandular density. No suspicious masses, microcalcifications or architectural distortion. MM/MM scr BI tomosynthesis [id number] IMPRESSION: BI-RADS: 1 - Negative. FOLLOW UP: 1 Year Follow-up
== END 2024-11-07 10:57 | disposition home or self-care (01) ==
LOC: MOBLMAM 10:57
PROVIDERS: PCP Nurse Practitioner Family; Visit Provider Nurse Practitioner Family
DX: Z12.31 Encounter for screening mammogram for malignant neoplasm of breast (principal); R92.323 Mammographic fibroglandular density, bilateral breasts
CPT/HCPCS: 77063; 77067